=== PATIENT | female | born 1985 | race Two or more races ===

== ENCOUNTER 2024-09-12 08:19 | Outpatient (AMB) | payer BC, SELFPAY ==
--- NOTE | 2024-09-12 08:58 | AMB.GYNCLNOT ---
Vital Signs 09/12/24 08:59 Height 1.63 m Height Method Stated Weight 62.142 kg Weight Measurement Method Standing Scale BMI 23.5 BP 113/65 Blood Pressure Source Automatic Cuff Blood Pressure Location Left Upper Arm Position Sitting Respiration 16 Pulse 80 Pulse Source Monitor Temp 97.9 F Temp Source Oral Pulse Oximetry (%) 98 Oxygen Delivery Method Room Air Allergies/Home Meds Allergies & Medications Allergies No Known Allergies Allergy (Unknown, Uncoded 09/12/24 09:00) Medication Reconciliation No Known Home Medications 09/12/24 [History Confirmed 09/12/24] Intake Visit Data Collection New Patient or Established: Established Patient (seen at [facility] within 3 years) Reason for Visit:: possible UTI, burning sensation when urinating, frequent urination and abdominal pain. Seen by Clinical Staff ONLY (RN/MA): No [email or web address] Java Developer Required: No Do You Feel Safe at Home: Yes Authorities Contacted: N/A PCP or OBGYN visit in last 3 months: No Hx Now: No Are you currently on any form of Control: Yes Last menstrual period: 08/13/24 Pain Present Currently: Yes Pain Location: Abdomen Pain Scale Used: Boyle-Calvillo/Numerical Pain scale:: 5 Smoking Status Smoking Status: Never smoker Forensic Identification Specialist history Forensic Identification Specialist History Menstrual regularity: regular Flow: heavy Monthly: Yes How many days does period last: 5 Age at menarche: 13 Menopausal: No Currently sexually active: Yes Questionnaires Covid-19 Vaccine Questionnaire Has patient been vacinated for Covid-19 Have you been vacinated for Covid-19: Yes PHQ-9 PHQ-2 Over the last 2 weeks, how often have you been bothered by any of the following problems? 1. Little interest or pleasure in doing things: not at all 2. Feeling down, depressed, or hopeless: not at all Total score: 0 PHQ-9 3. Trouble falling or staying asleep, or sleeping too much: Not at all 4. Feeling tired or having little energy: Not at all 5. Poor appetite or overeating: Not at all 6. Feeling bad about yourself - or that you are a failure or have let yourself or your family down: Not at all 7. Trouble concentrating on things, such as reading the newspaper or watching television: Not at all 8. Moving or speaking so slowly that other people could have noticed? - Or the opposite - being so fidgety or restless that you have been moving around a lot more than usual: not at all 9. Thoughts that you would be better off or of hurting yourself in some way: Not at all Total score: 0 Source: Developed by Drs. Gregory Rojas, Lisa Fisher, Bang Morataya and colleagues, with an educational aidan from [employer]. 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 Tobacco History Smoking Status: Never smoker Alcohol History Alcohol Intake: Never Substance Use History Substance Use: No Domestic Abuse History Do You Feel Safe at Home: Yes Past Medical History Past Medical History Have you ever been diagnosed with any of the following: Neurological Problems Meningitis: No Seizures: No Migraine: No Cardiology Problems Cardiac Arrhythmia: No Heart Murmur: No Hypercholesterolemia: No Rheumatic Fever: No Deep Vein Thrombosis: No Hypertension: Yes (mother and father) Respiratory Problems Asthma: No Tuberculosis: No Pulmonary Embolism: No Sleep Apnea: No Stomache/Intestinal Problems Gall Bladder Disease: No Colitis: No Irritable Bowel: No Gastroesophageal Reflux Disease: No Genital/Urinary Problems Renal Disease: No Kidney Stones: No Neurogenic Bladder: No Reproductive Problems Breast Cancer: No Endometriosis: No Fibroids: No Genital Herpes: No Gonorrhea: No Pelvic Inflammatory Disease: No Polycystic Ovarian Syndrome: No Previous Pregnancies: Yes (History of vaginal delivery x 2 in past) Syphilis: No Musculoskeletal Problems Arthritis: No Rheumatoid Arthritis: No Scoliosis: No Fractures: No Endocrine Problems Diabetes Mellitus Type 1: Yes (mother/father/son) Diabetes Mellitus Type 2: No Hyperthyroidism: No Hypothyroidism: No Thyroid Cancer: No Systemic Lupus Erythematosus: No Blood Problems Anemia: No Clotting Problems: No Psychologic Problems Depression: No Anxiety: No Attention Deficit Disorder: No Other Problems Hospitalization: Yes (Childbirth x 2, laparoscopic ovarian cystectomy) Autoimmune Disease: No Anesthesia Reactions: No Surgical History Appendectomy: No Bariatric Surgery: No Breast Surgery: No Cholecystectomy: No Additional Surgical History: Ovary cyst removal History of Present Illness HPI Narrative The patient is a pleasant 39-year-old -0-1-2 who has a 20-year-old and 12-year-old at home, presents for burning and abdominal pain no fevers chills. Patient had called a [facility] health provider about 2 weeks ago and was given a script for Macrobid 100 mg p.o. twice daily for 7 days. She finished this about a week ago and felt okay for a little bit and now reports increased burning with urination and vague abdominal pain. She denies abnormal bleeding no abnormal discharge she does not desire a pelvic exam or speculum exam today. She declines STD testing today. She denies flank tenderness or history of kidney stones. She last had a UTI in March 2024 but states she does not get frequent bladder infections. Review of Systems Constitutional Constitutional: Reports system reviewed and no additional complaints, except as documented Genitourinary Genitourinary: Reports dysuria, Reports pelvic pain and Reports urinary urgency Exam General Limitations: no limitations General Appearance: alert, in no apparent distress, comfortable, cooperative, healthy appearing and well groomed Head Head exam: atraumatic, normocephalic and normal inspection Neck Neck exam: Present normal inspection, full ROM and trachea midline Chest Chest inspection: Present normal inspection and symmetric chest wall rise Resp Respiratory exam: Present normal lung sounds bilaterally Card Cardiovascular exam: Present regular rate, normal rhythm and normal heart sounds Abdominal Abdominal exam: Present soft and normal bowel sounds Psych Psychiatric exam: Present normal affect and normal mood Skin Skin exam: Present warm, dry, intact and normal color Assessment & Plan Diagnosis / Problem List (1) Urinary urgency: Status: Acute (2) Urinary tract infection: Status: Acute Qualifiers: Urinary tract infection type: acute cystitis Additional Plan Check a UA and culture. Call in [facility] to [facility] in [place]. Follow-up with patient's urinalysis and culture in a week. Patient will also make an annual exam in October 2024. Follow Up: 2 Months (for annual exam/STD testing) Office Procedures OB Clinic LOC & Office Proc's Nursing/Assessment Patient Status: Established Patient OB Clinic Nursing Assessment: Medication Reconciliation, Update PMH in EMR and Vital Signs OB Clinic Coordination of Care: Complex Care and Chronic Disease 1-5, Consent,records obtained, informed consent, Education Simp Pt/Fam, Lab and Imaging orders and Staff clarify orders Established Patient Charge Established Patient Point Assignment: 100 Established Patient Point Charge: EP Level 3 (80-115)
[2024-09-12 08:59] VITALS: BP 113/65; PULSE 80; RESP 16; TEMP 36.6; O2SAT 98; BMI 23.5
== END 2024-09-12 09:21 | disposition home or self-care (01) ==
LOC: HODSOBC 08:19
PROVIDERS: PCP Family Medicine; Supervising Provider Obstetrics & Gynecology; Visit Provider Obstetrics & Gynecology
DX: N39.0 Urinary tract infection, site not specified (principal)
CPT/HCPCS: 99213; G0463

== ENCOUNTER → 2024-09-12 | Outpatient (CLI) | payer BC, SELFPAY ==
[2024-09-12 11:37] LABS: Collection Type, Urine Clean Catch
[2024-09-12 13:35] LABS: Bilirubin,Urine Negative (Negative); Blood,Urine Negative (Negative); Clarity,Urine Clear (Clear/Hazy); Color,Urine Lt-Yellow (Lt Yel-Yel); Glucose, Urine Negative (Negative); Ketones,Urine Negative (Negative); Leukocyte Esterase,Urine Negative (Negative); Nitrite,Urine Negative (Negative); PH,Urine 6.5 (5.0-7.0); Protein,Urine Trace (Neg - Trace); RBC,Urine 2 /hpf (0-3); Specific Gravity,Urine 1.028 (1.001-1.035); Squamous Epithelial Cell,Urine 2 /hpf (0-5); Urobilinogen,Urine Negative mg/dL (0.0-1.0); WBC,Urine 1 /hpf (0-5)
== END | disposition home or self-care (01) ==
LOC: SLDO 11:33
PROVIDERS: Referring Provider Obstetrics & Gynecology; Visit Provider Obstetrics & Gynecology
DX: N39.0 Urinary tract infection, site not specified (principal)
CPT/HCPCS: 81001; 87086

== ENCOUNTER 2024-11-30 08:19 | Outpatient (AMB) | payer BC, SELFPAY ==
[2024-11-30 08:32] VITALS: BP 115/81; PULSE 77; RESP 20; TEMP 36.7; O2SAT 99; BMI 23.4
--- NOTE | 2024-11-30 08:32 | GYNCLNT_ITS ---
Vital Signs 11/30/24 08:32 Height 1.63 m Height Method Stated Weight 62.369 kg Weight Measurement Method Standing Scale BMI 23.4 BP 115/81 Blood Pressure Source Automatic Cuff Blood Pressure Location Left Upper Arm Position Sitting Respiration 20 Pulse 77 Pulse Source Monitor Temp 98.1 F Temp Source Temporal Artery Scan Pulse Oximetry (%) 99 Oxygen Delivery Method Room Air Allergies/Home Meds Allergies & Medications Allergies No Known Allergies Allergy (Unknown, Uncoded 11/30/24 08:33) Medication Reconciliation No Known Home Medications 11/30/24 [History Confirmed 11/30/24] Intake Visit Data Collection New Patient or Established: Established Patient (seen at [facility] within 3 years) Reason for Visit:: Annual wellness exam Do You Feel Safe at Home: Yes Authorities Contacted: N/A PCP or OBGYN visit in last 3 months: No Smoking Status Smoking Status: Never smoker Outside Salesperson history Outside Salesperson History Menstrual regularity: regular Flow: normal Monthly: Yes How many days does period last: 4 Age at menarche: 13 Currently sexually active: Yes CHUTE BUILDER: Past Medical History Past Medical History: No Hx Hypothyroidism, No Hx Hyperthyroidism, No Hx Breast Cancer, Yes Hx Hypertension (mother and father), No Hx Anemia, No Hx Renal Disease, No Hx Deep Vein Thrombosis, Yes Hx Diabetes Mellitus Type 1 (mother/f ather/son), No Hx Diabetes Mellitus Type 2 and No Hx Polycystic Ovarian Syndrome Questionnaires Covid-19 Vaccine Questionnaire Has patient been vacinated for Covid-19 Have you been vacinated for Covid-19: Yes PHQ-9 PHQ-2 Over the last 2 weeks, how often have you been bothered by any of the following problems? 1. Little interest or pleasure in doing things: not at all 2. Feeling down, depressed, or hopeless: not at all Total score: 0 PHQ-9 8. Moving or speaking so slowly that other people could have noticed? - Or the opposite - being so fidgety or restless that you have been moving around a lot more than usual: not at all Source: Developed by Drs. Gregory Rojas, Lisa Fisher, Bang Morataya and colleagues, with an educational aidan from [employer]. 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 I saw her back for recurrent bladder infections. She has a 20-year-old son at [facility] [employer] studying music. She has a 12-year-old daughter at home. She is but is dating. 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 She does not desire . Cycles are regular monthly she denies hot flashes night sweats she declines a screening mammogram today stating she will get one at age 41. Her only complaint is frequent bladder infections. She has no family history of breast or colon cancer she tracks her cycles on her phone. Her primary care is Dr. Bradley. Patient would like STD testing today on her Pap and also through blood work. Will go and check cholesterol and other lab work and send it to Dr. Bradley. Patient denies abnormal discharge odor or abnormal bleeding breast complaints she denies any dysuria today. Menstrual character: normal Gynecologic pain symptoms: Reports none Urogynecologic symptoms: Reports other (Frequent bladder infections) Menopause concerns/symptoms: Reports none Exam General General Appearance: alert, in no apparent distress, comfortable, cooperative, healthy appearing, well developed and well groomed Neck Neck exam: Present normal inspection, full ROM and trachea midline Chest Chest inspection: Present normal inspection and symmetric chest wall rise Resp Respiratory exam: Present normal lung sounds bilaterally Card Cardiovascular exam: Present regular rate, normal rhythm and normal heart sounds Abdominal Abdominal exam: Present soft and normal bowel sounds External exam: Present normal external exam and other (No significant cystocele urethrocele present. No tenderness of bladder or urethra is) Speculum exam: Present normal speculum exam Bimanual exam: Present normal bimanual exam and other (Uterus is anteverted nontender) Extremities Extremities exam: Present normal inspection and full ROM Psych Psychiatric exam: Present normal affect and normal mood Skin Skin exam: Present warm, dry, intact and normal color Office Procedures OB Clinic LOC & Office Proc's Nursing/Assessment Patient Status: Established Patient OB Clinic Nursing Assessment: BP Monitoring, Medication Reconciliation, Update PMH in EMR and Vital Signs OB Clinic Coordination of Care: Complex Care and Chronic Disease 1-5, Education Complex Pt/Fam, Education Simp Pt/Fam, Lab and Imaging orders and Staff clarify orders Miscellaneous Interventions: Breast Exam and Pelvic/Pap Smear Set up Established Patient Charge Established Patient Point Assignment: 180 Established Patient Point Charge: EP Level 5 (160-above) In Clinic Procedures Pap Smear: Yes Assessment & Plan Diagnosis / Problem List (1) Encounter for Routine Gynecological Examination: Qualifiers: Gynecological examination findings: abnormal findings ABSENT Qualified Code(s): Z01.419 - Encounter for gynecological examination (general) (routine) without abnormal findings Assessment and Plan: Pap with cotesting HPV performed breast exam done encouraged mammogram declined at this time. She labs ordered. (2) Recurrent urinary tract infection: Status: Acute Assessment and Plan: Refer to urology CLINICAL MEDICAL TRANSCRIPTIONIST: Papsmear Pap Smear Procedure [place]arone in room during procedure?: No Pre-op diagnosis general: Annual wellness exam Post-op diagnosis procedure note: Same Procedure Notes:: Pap with cotesting to HPV performed Papsmear completed: yes
== END 2024-11-30 09:21 | disposition home or self-care (01) ==
LOC: HODSOBC 08:19
PROVIDERS: Supervising Provider Obstetrics & Gynecology; Visit Provider Obstetrics & Gynecology
DX: Z01.419 Encounter for gynecological examination (general) (routine) without abnormal findings (principal); N39.0 Urinary tract infection, site not specified; Z87.440 Personal history of urinary (tract) infections
CPT/HCPCS: 99214; 99215; Q0091; G0463